=== PATIENT | male | born 2000 | race American Indian/Alaskan Native ===

== ENCOUNTER 2021-06-17 12:22 | Emergency (ER) | payer SELFPAY ==
[2021-06-17 13:39] VITALS: BP 115/57
--- NOTE | 2021-06-17 14:24 | XRay Report ---
RIGHT KNEE 4 VIEWS INDICATION / CLINICAL INFORMATION: Injury with right knee pain. COMPARISON: None available. FINDINGS: BONES / JOINT(S): There is a moderate suprapatellar joint effusion. The joint spaces are well-maintai alice. I see no evidence of acute fracture or subluxation. SOFT TISSUES: No significant abnormality. ADDITIONAL FINDINGS: None. Signer Name: Fracisco Payton MD Signed: 06/17/2021 2:19 PM Workstation Name: [id number]
--- NOTE | 2021-06-17 15:44 | Emergency Department Report ---
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 Patient states he was playing basketball when he jumped up to place a basket he felt his right knee pop came down and has had swelling and pain since. Patient denies any prior injury to the right knee. Patient reports walking and bearing weight makes the pain worse rest makes it better. Has not taken anything for pain. MD Complaint: knee injury Onset/Timin -: days(s) Injury: Knee: Right Type of Injury: hyperflexion Place: street/outdoors Severity scale (0 -10): 8 Improves With: immobilization Worsens With: weight bearing, movement, palpation Context: jumping Associated Symptoms: snap/pop sensation, swelling, able to partially bear weight - Related Data Previous Rx's Medication Instructions Recorded Last Taken Type Acetaminophen/Codeine [Tylenol #3] 1 tab PO Q6H PRN #20 tab 02/15/15 Unknown Rx Promethazine [Phenergan] 25 mg PO Q6H PRN #20 tablet 02/15/15 Unknown Rx Ibuprofen [Motrin 800 MG tab] 800 mg PO Q8HR PRN #30 tablet 06/17/21 Unknown Rx Allergies Allergy/AdvReac Type Severity Reaction Status Date / Time No Known Allergies Allergy Verified 02/15/15 03:46 ED Review of Systems ROS: Stated complaint: HURT KNEE /SEVERE PAIN Other details as noted in HPI Comment: All other systems reviewed and negative ED Past Medical Hx - Past Medical History Previous Medical History?: No Additional medical history: SEASONAL ALLERGY - Surgical History Past Surgical History?: No - Social History Smoking Status: Never Smoker Substance Use Type: None - Medications Home Medications: Home Medications Medication Instructions Recorded Confirmed Last Taken Type Acetaminophen/Codeine [Tylenol #3] 1 tab PO Q6H PRN #20 tab 02/15/15 Unknown Rx Promethazine [Phenergan] 25 mg PO Q6H PRN #20 tablet 02/15/15 Unknown Rx Ibuprofen [Motrin 800 MG tab] 800 mg PO Q8HR PRN #30 tablet 06/17/21 Unknown Rx ED Physical Exam - General Limitations: No Limitations General appearance: alert, in no apparent distress - Head Head exam: Present: atraumatic, normocephalic - Eye Eye exam: Present: normal appearance - ENT ENT exam: Present: normal external ear exam - Neck Neck exam: Present: normal inspection, full ROM - Respiratory Respiratory exam: Absent: respiratory distress, accessory muscle use - Cardiovascular Cardiovascular Exam: Present: regular rate - Expanded Lower Extremity Exam Right Hip exam: Present: normal inspection, full ROM Upper Leg exam: Present: normal inspection, full ROM Knee exam: Present: full ROM, tenderness, swelling, effusion Lower Leg exam: Present: normal inspection, full ROM Ankle exam: Present: normal inspection, full ROM Foot/Toe exam: Present: normal inspection, full ROM Neuro vascular tendon exam: Present: no vascular compromise Gait: Positive: observed and limited by pain - Back Exam Back exam: Present: normal inspection, full ROM - Neurological Exam Neurological exam: Present: alert, oriented X3 - Psychiatric Psychiatric exam: Present: normal affect, normal mood - Skin Skin exam: Present: warm, dry, intact, normal color. 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 Patient states he was playing basketball when he jumped up to place a basket he felt his right knee pop came down and has had swelling and pain since. Patient denies any prior injury to the right knee. Patient reports walking and bearing weight makes the pain worse rest makes it better. Has not taken anything for pain. X-ray of right knee shows moderate suprapatellar effusion. Patient be placed in a knee immobilizer crutches and a referral to orthopedic. Patient will be given a prescription for ibuprofen. Critical care attestation.: If time is entered above; I have spent that time in minutes in the direct care of this critically ill patient, excluding procedure time. ED Disposition Clinical Impression: Knee effusion, right Right knee injury Qualifiers: Encounter type: initial encounter Qualified Code(s): S89.91XA - Unspecified injury of right lower leg, initial encounter Disposition: DC-01 TO HOME OR SELFCARE Is pt being admited?: No Does the pt Need Aspirin: No Condition: Stable Instructions: Knee Effusion, [id number] Additional Instructions: X-ray shows you have a knee effusion which is fluid on the knee. As I spoke with you outpatient follow-up with orthopedic as needed as you possibly need an MRI. Continue to wear your knee immobilizer and follow-up with orthopedics in the next 3 to 5 days. Ibuprofen for pain management. Increase your fluid intake while taking ibuprofen. Prescriptions: Ibuprofen [Motrin 800 MG tab] 800 mg PO Q8HR PRN #30 tablet PRN Reason: Pain , Severe (7-10) Referrals: MATHEUS CRABTREE MD [Staff Physician] - 3-5 Days Forms: Work/School Release Form(ED) Time of Disposition: 15:46
== END 2021-06-17 16:31 | disposition home or self-care (01) ==
LOC: ED 12:22
DX: S89.91XA Unspecified injury of right lower leg, initial encounter (principal); M25.461 Effusion, right knee; W17.89XA Other fall from one level to another, initial encounter; Y93.89 Activity, other specified; Y92.89 Other specified places as the place of occurrence of the external cause; Y99.8 Other external cause status
CPT/HCPCS: 99283